=== PATIENT | female | born 1960 | race Two or more races ===

== ENCOUNTER 2020-06-20 10:12 | Emergency (ER) | payer MEDICARE, OTHER ==
[~2020-06-20] VITALS: Ht 152.4 cm; Wt 55.3 kg
[2020-06-20 10:43] VITALS: BP 182/88
== END 2020-06-20 11:22 | disposition home or self-care (01) ==
LOC: ER 10:12
DX: I10 Essential (primary) hypertension (principal); Z76.0 Encounter for issue of repeat prescription

== ENCOUNTER 2021-02-16 20:59 | Emergency (ER) | payer OTHER, MEDICAID ==
[~2021-02-16] VITALS: Ht 152.4 cm; Wt 58.1 kg
[2021-02-16 22:39] LABS: Basophils # (auto) 0 10 ^3/uL (0-0.2); Basophils % (auto) 0.8 % (0.0-2.0); Eosinophils # (auto) 0.1 10 ^3/uL (0-0.8); Eosinophils % (auto) 1.8 % (0.0-7.0); Hematocrit 40.2 % (36.0-46.0); Hemoglobin 13.7 g/dL (12.2-16.2); Lymphocytes # (auto) 1.7 10 ^3/uL (0.4-5.4); Lymphocytes % (auto) 27.9 % (10.0-50.0); Mean Corpuscular Hemoglobin 27.8 pg (28.0-32.0); Mean Corpuscular Volume 81.9 fL (80.0-100.0); Monocytes # (auto) 0.7 10 ^3/uL (0-1.3); Neutrophils # (auto) 3.6 10 ^3/uL (1.6-8.6); Neutrophils % (auto) 58.5 % (37.0-80.0); Nucleated Red Blood Cells % 0.3 %; Platelet Count (auto) 266 10^3/uL (140-450); Red Blood Cells 4.91 10^6/uL (4.0-5.20); White Blood Cell 6.2 10^3/uL (4.4-10.8)
[2021-02-16] MEDS ORDERED: hydrALAZINE HCL 20 MG/ML VL IV ONE (22:45)
[2021-02-16 22:49] LABS: Albumin 3.8 g/dL (3.4-5.0); Blood Urea Nitrogen 18 mg/dL (7-18); Calcium 8.9 mg/dL (8.5-10.1); Chloride 110 mmol/L (98-107); Potassium 3.9 mmol/L (3.5-5.1); Sodium 140 mmol/L (136-145)
[2021-02-16 22:52] LABS: Alanine Aminotransferase 35 U/L (13-56); Anion Gap 8 (5-15); Aspartate Aminotransferase 46 U/L (15-37); BUN/Creatinine Ratio 22.2; Carbon Dioxide 22 mmol/L (21-32); GFR African American 93 mL/min; GFR Non-African American 77 mL/min; Glucose 93 mg/dL (74-106)
[2021-02-16 22:57] LABS: Alkaline Phosphatase 134 U/L (45-117); Bilirubin, Total 0.3 mg/dL (0.2-1.0)
[2021-02-17 02:00] VITALS: BP 126/66
== END 2021-02-17 02:13 | disposition home or self-care (01) ==
LOC: ER 21:02
DX: R07.89 Other chest pain (principal); I10 Essential (primary) hypertension; F41.9 Anxiety disorder, unspecified
CPT/HCPCS: 36415; 71045; 80053; 83880; 84484; 85025; 93005; 96374; 99285; J0360; J7030